=== PATIENT | female | born 1945 | race Caucasian/White ===

== ENCOUNTER 2024-01-18 13:00 | Outpatient (RCR) | payer OTHER, SELFPAY | END 2024-01-18 23:59 | disposition home or self-care (01) | LOC: CRHB 13:00 | PROVIDERS: ATTENDING PHYSICIAN Internal Medicine Cardiovascular Disease; FAMILY PHYSICIAN Family Medicine | DX: I25.10 Atherosclerotic heart disease of native coronary artery without angina pectoris (principal); Z95.5 Presence of coronary angioplasty implant and graft | CPT/HCPCS: G0422 ==

== ENCOUNTER 2024-03-08 16:31 | Emergency (ER) | payer OTHER, SELFPAY ==
[2024-03-08 16:37] VITALS: BP 184/95
[2024-03-08 16:54] VITALS: BMI 18.7
[2024-03-08 17:04] LABS: % Basophils 1.3 % (0-2); % Eosinophils 2.9 % (0-6); % Immature Granulocytes 0.2 % (0-0.5); % Monocytes 15.3 % (1.7-9.3); % Neutrophils 55.3 % (42.2-75.2); Absolute Basophils 0.1 10^3/uL (0-0.2); Absolute Eosinophils 0.3 10^3/uL (0-0.7); Absolute Lymphocytes 2.4 10^3/uL (1.2-3.4); Absolute Monocytes 1.4 10^3/uL (0.1-0.6); Absolute Neutrophils 5.2 10^3/uL (1.4-6.5); Hematocrit 36.7 % (37.0-47.0); Hemoglobin 12.9 g/dL (12.0-16.0); Mean Corp Hgb Conc. 35.1 g/dL (33.0-37.0); Mean Corpuscular Hgb 32.7 pg (27.0-31.0); Mean Corpuscular Volume 93.1 fL (81.0-99.0); Mean Platelet Volume 9.4 fL (7.4-10.4); Nucleated Red Blood Cells % 0 %; Platelet Count 329 10^3/uL (130-400); Red Blood Cell Count 3.94 10^6/uL (4.20-5.40); Red Cell Dist. Width 13.5 % (11.5-14.5); White Blood Cell Count 9.4 10^3/uL (4.8-10.8)
[2024-03-08 17:05] VITALS: BP 180/71
--- NOTE | 2024-03-08 17:14 | ED.GENMED ---
History of Present Illness
General
Chief Complaint: Chest Pain
Time Seen by Provider: 03/08/24 17:00
Travel History
Have you had any contact with someone who has COVID-19?: No
Do you have any symptoms of coronavirus? Fever > 100 degrees, chills, cough, shortness of breath, sore throat, loss of taste or smell, muscle aches, or headache?: No
History of Present Illness
History of Present Illness:
This patient is a 78-year-old female presents emergency department complaints of pain at the left side of her chest involving her left arm and neck that started around 11 AM today. It was gradual in onset and started while she was working in the
[employer]. She then went to work and noted that the pain gradually got worse. She describes it as a 'pressure' also described as an ache'. She denies associated back pain, headache, dyspnea, diaphoresis, abdominal pain, nausea, vomiting, headache,
dizziness. Upon presentation the emergency department, she states that her symptoms have now fully resolved. Patient has a history of a recent cardiac event with resulting stent placement. She is compliant with her medications although she states
that she forgot to take her aspirin last night, and therefore took it today. She has been fully compliant with her Plavix.
Past History
Past History
ED Past Medical History: CAD, HTN, Hypercholesterolemia and Other (Arthritis, cervical disc disease); Negative Arrthythmia
ED Past Surgical History: Gynecological (oophorectomy)
Social History
Tobacco: Non-smoker
Alcohol: None
Drug: None
Personal:
Living: with family
Employment: Employed
Phy Exam
Physical Exam
Physical Exam:
GENERAL: Alert , in no apparent distress
EYE: pupils equal and reactive
NECK: Supple, no significant adenopathy.
ENT: o/p clr, mmm.
CARDIAC: Regular rate and rhythm .
LUNGS: Clear breath sounds bilaterally, no acute respiratory distress, no wheezes/rales/rhonchi
ABDOMEN: Soft, without focal tenderness, no r/g, no cvat
NEUROLOGICAL: Alert and oriented, no focal neuro deficits
SKIN: Warm and dry, skin intact.
MUSCULOSKELETAL: No edema, well perfused.
PSYCH: Normal and appropriate interaction.
Scores
Heart Score for Chest Pain Patients
STEMI patient?: Not applicable
Course
Orders/Labs/Results
Orders:
Orders
03/08/24 16:33
ECG [Electrocardiogram (*1)] Urgent
Reason for Study: Chest Pain
EKG- Treatment ONCE
03/08/24 16:58
Complete Blood Count/With Diff Urgent
Comprehensive Metabolic Panel Urgent
Troponin I Urgent
03/08/24 19:55
Troponin I Urgent
03/08/24 20:12
ECG [Electrocardiogram (*1)] Urgent
Reason for Study: Chest Pain
Other Reason for Exam: serial trop
EKG- Treatment ONCE
Abnormal Lab Results
03/08/24
16:58
RBC 3.94 L 10^6/uL
(4.20-5.40)
Hct 36.7 L %
(37.0-47.0)
MCH 32.7 H pg
(27.0-31.0)
Absolute Monos (auto) 1.4 H 10^3/uL
(0.1-0.6)
Monocytes % 15.3 H %
(1.7-9.3)
Sodium 133 L mmol/L
(135-145)
BUN 19 H mg/dl
(7-17)
03/08/24 16:58
03/08/24 16:58
Vital Signs
Initial and Last Documented VS:
Initial Vital Signs
Temp Pulse Resp BP Pulse Ox
98.1 F 75 18 184/95 99
03/08/24 16:37 03/08/24 16:37 03/08/24 16:37 03/08/24 16:37 03/08/24 16:37
Last Documented Vital Signs
Temp Pulse Resp BP Pulse Ox
98.1 F 66 20 174/58 99
03/08/24 16:37 03/08/24 20:00 03/08/24 20:00 03/08/24 19:52 03/08/24 16:37
*Critical Care Note
Total Time (30-74mins, 75-104mins- exclusive of procedures): Not Applicable
Update Note
Update Note:
Patient presents to the Emergency Department with ____chest arm and neck pain
Number and Complexity of Problems Addressed at the Encounter
� Chronic conditions affecting care:
� Acute Exacerbation and/or Progression of Chronic Illness:
� Differential Diagnosis includes: But not limited to ACS, muscular strain, pericarditis, pleurisy, etc.
Amount and/or Complexity of Data to be Reviewed and Analyzed
� I performed an independent evaluation of and my interpretation is:
EKG: Read by me, normal sinus rhythm, normal rate, normal axis, no acute ischemia
CT:
Xrays:
Laboratory Studies:trop flat
Other:
� Review of other/old records reveals: Patient admitted October 2023 with angioplasty and stent x 3 to the LAD.
� Clinical information was obtained by an independent historian: who is at bedside
� Prescriptions/Medications Considered but not given:
� Further testing considered but not performed:
Risk of Complications and/or Morbidity or Mortality of Patient Management
� Social determinants of health affecting care:
� Discussion with other providers (PCP, Hospitalists, Consultants, etc):
� Escalation of care including admission/observation vs risk of discharge considered:901 pm pt remains pain free, no worrisome etiology for pain noted at this time, dobut dissection (not sudden, not ripping,e tc), PE (not
pleuritic, no sob), etc etc. D/w pt import of f/u and reasons to rted.
ED Attending Note
-
Portions of this chart may have been created with voice recognition software.� Occasional wrong word or��sound alike� substitutions may have occurred due to the inherent limitations of voice recognition software.
Discharge Plan
Departure
Patient Disposition: Home (Routine Discharge)
Date of Disposition: 03/08/24
Time of Disposition: 20:59
Patient with high blood pressure during this ER visit?: Yes
Condition: Good
Discharge Problem:
Chest pain
Instructions: Chest Pain CBC Follow Up, BLOOD PRESSURE
Prescriptions:
No Action
diazepam 2 mg Tablet
2 mg PO HS PRN (Reason: sleep)
Patient Comments:
03/08/2024: last filled 02/28/24, 30 tabs for 30 days from [facility]
acetaminophen [Tylenol Extra Strength] 500 mg Tablet
500 mg PO BIDPRN PRN (Reason: mild pain)
clopidogrel 75 mg Tablet
75 mg PO DAILY Qty: 90 3RF
Enbrel 50 mg/mL (1 mL) Syringe
50 mg SC Q2W Qty: 0 0RF
vitamin D3-vitamin K2
1 tab PO QPM Qty: 0 0RF
metoprolol succinate [Toprol XL] 25 mg tablet extended release 24 hr
25 mg PO DAILY Qty: 30 0RF
simvastatin 10 mg tablet
10 mg PO QPM
coenzyme Q10 [Co Q-10] 50 mg Capsule
50 mg PO BID
erythromycin 5 mg/gram (0.5 %) ointment
1 applic LEFT EYE QID
Patient Comments:
03/08/2024: to left lower lid
aspirin 81 mg tablet,delayed release (DR/EC)
81 mg PO QPM
vitamin E 268 mg (400 unit) capsule
268 mg PO Q48H
Davis Oil
500 mg PO Q48H
Referrals:
Karlie Nuñez, [Family Provider] -
Activity Restrictions/Additional Instructions:
PLEASE CONTINUE TO TAKE YOUR MEDICATIONS DIRECTED. IF YOU DEVELOP RECURRENT/NEW/WORSENING PAIN, FEVER, VOMITING, TROUBLE BREATHING, OR OTHER WORRISOME SIGNS, GO TO THE ER IMMEDIATELY!
Interventions
Interventions:
*Risk Screen - Suicide Last Done: 03/08/24 16:37
*General Assessment Last Done: 03/08/24 16:37
*Neglect/Abuse Screening Last Done: 03/08/24 16:37
ED- Cardiac Assessment Last Done: 03/08/24 16:55
Discharge Date and Time
Print Language: GEORGIAN
[2024-03-08 17:16] LABS: ALT (SGPT) 19 U/L (0-35); AST (SGOT) 32 U/L (14-36); Albumin 4.3 g/dl (3.5-5.0); Alkaline Phosphatase 63 U/L (38-126); Blood Urea Nitrogen 19 mg/dl (7-17); Calcium 9.2 mg/dl (8.4-10.2); Carbon Dioxide 28 mmol/L (22-30); Chloride 98 mmol/L (98-107); Estimated Creatinine Clearance 59 ml/min; Glucose 99 mg/dl (70-99); Potassium 4.1 mmol/L (3.5-5.1); Sodium 133 mmol/L (135-145); Total Bilirubin 0.8 mg/dl (0.2-1.3); Total Protein 7.4 g/dl (6.3-8.2); eGFR > 60.00
[2024-03-08 17:28] LABS: Troponin I < 0.012 ng/ml
[2024-03-08 19:52] VITALS: BP 174/58
[2024-03-08 20:27] LABS: Troponin I 0.012 ng/ml
[2024-03-08 21:09] VITALS: BP 162/68
== END 2024-03-08 21:54 | disposition home or self-care (01) ==
LOC: EMR 16:31
PROVIDERS: EMERGENCY PHYSICIAN Emergency Medicine; FAMILY PHYSICIAN Family Medicine
DX: R07.89 Other chest pain (principal); M54.2 Cervicalgia; M79.602 Pain in left arm; I25.10 Atherosclerotic heart disease of native coronary artery without angina pectoris; I10 Essential (primary) hypertension; E78.00 Pure hypercholesterolemia, unspecified; M50.90 Cervical disc disorder, unspecified, unspecified cervical region; M19.90 Unspecified osteoarthritis, unspecified site; Z79.82 Long term (current) use of aspirin; Z79.02 Long term (current) use of antithrombotics/antiplatelets; Z95.5 Presence of coronary angioplasty implant and graft; Z91.018 Allergy to other foods
CPT/HCPCS: 99284; 80053; 84484; 85025; 93005

== ENCOUNTER → 2024-08-10 13:15 | Outpatient (REF) | payer OTHER, SELFPAY | LOC: HWRAD 13:15 | PROVIDERS: ATTENDING PHYSICIAN Internal Medicine Rheumatology; FAMILY PHYSICIAN Family Medicine | DX: M81.0 Age-related osteoporosis without current pathological fracture (principal) | CPT/HCPCS: 77080 ==